=== PATIENT | male | born 1965 | race Caucasian/White ===

== ENCOUNTER 2021-01-23 08:07 | Emergency (ER) | payer OTHER ==
[~2021-01-23] VITALS: Ht 172.7 cm; Wt 102.1 kg
[2021-01-23] MEDS ORDERED: CLEOCIN HCL300 MG PO (08:48)
[2021-01-23] MEDS ORDERED: LOSARTAN POTASS50 MG PO (08:56)
[2021-01-23] MEDS ORDERED: WARFARIN SODIU2.5 MG PO (08:57)
[2021-01-23] MEDS ORDERED: PACERONE200 MG PO (08:57)
[2021-01-23] MEDS ORDERED: METOPROLOL SUC100 MG PO (09:00)
== END 2021-01-23 09:02 | disposition home or self-care (01) ==
LOC: ED 08:07
DX: L02.11 Cutaneous abscess of neck (principal)
CPT/HCPCS: 10060; 99283-25

== ENCOUNTER 2021-01-25 08:48 | Emergency (ER) | payer OTHER ==
[~2021-01-25] VITALS: Ht 172.7 cm; Wt 102.1 kg
[~2021-01-25 08:48] MED LIST: CLEOCIN HCL300 MG PO; LOSARTAN POTASS50 MG PO; METOPROLOL SUC100 MG PO; PACERONE200 MG PO; WARFARIN SODIU2.5 MG PO
--- OUTSIDE RECORDS SUMMARY | 2021-01-25 08:52 | XMS ---
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 Meena has no Care Guidelines for this patient. Robert VISIT COUNT ([address] [facility] [place] [facility] TOTAL 2 NOTE: Visits indicate total known visits. [place] [place]12 MO[place] 01/25/2021 08:49 [facility] [place] TYPE: Emergency COMPLAINT: - SUTURE REMOVAL 01/23/2021 08:08 [facility] [place] TYPE: Emergency COMPLAINT: - NECK PAIN INPATIENT VISIT TRACKING (12 MO.) No inpatient visits to display in this time frame [id number]
== END 2021-01-25 09:25 | disposition home or self-care (01) ==
LOC: ED 08:48
DX: L02.11 Cutaneous abscess of neck (principal); F17.200 Nicotine dependence, unspecified, uncomplicated; Z79.899 Other long term (current) drug therapy; Z79.01 Long term (current) use of anticoagulants
CPT/HCPCS: 99282